=== PATIENT | female | born 2005 | race Caucasian/White ===

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

== ENCOUNTER → 2025-01-10 | Outpatient (CLI) | payer OTHER, SELFPAY ==
--- NOTE | 2025-01-10 07:12 | NM_ITS ---
PROCEDURE: GASTRIC EMPTYING STUDY - 4 HR 01/10/2025 REASON FOR EXAM: DELAYED 1HR GET COMPARISON: None. TECHNIQUE: The patient ingested a standard meal of cooked egg whites mixed with , toasted white bread, jelly, and water. Total time taken to ingest the meal was minutes. Approximately % of the meal was ingested. There was no vomiting postprandially. Anterior and posterior planar images of the upper abdomen were obtained for 1 minute immediately following the meal at 1h, 2h and 4h if more than 10% of the activity persisted within the stomach. Regions of interest were drawn, and a geometric mean was used to calculate a [id number]. Fasting Blood Glucose (if diabetic): mg/dL. Medications taken in the past 24 hours that may affect gastric emptying: None RADIOPHARMACEUTICAL: 1.2 mCi of technetium 99 M sulfur colloid FINDINGS: Percent activity remaining in stomach: 1 hour 66 % (normal 37-90%) 2 hours: 28 % (normal 30-60%) 4 hours: 1 % (normal 0-10%) NM/Gastric Emptying Study - 4 HR IMPRESSION: Normal gastric emptying. Reading Location: [id number]
== END | disposition home or self-care (01) ==
LOC: NM 07:11
PROVIDERS: PCP Family Medicine
DX: K31.84 Gastroparesis (principal)
CPT/HCPCS: 78264; A9541

== ENCOUNTER → 2025-03-28 | Outpatient (CLI) | payer OTHER, SELFPAY ==
--- NOTE | 2025-03-28 12:19 | NM_ITS ---
PROCEDURE: HEPATOBILIARY IMG W/PHARM INT 03/28/2025 REASON FOR EXAM: ABD BLOATING/EPIGASTRIC PAIN TECHNIQUE: Intravenous Choletec with planar imaging of the abdomen. RADIOPHARMACEUTICAL: 5.7 mg technetium 9 9 M mebrofenin COMPARISON: CT 12/01/2024 FINDINGS: Homogeneous liver activity. CBD and proximal bowel activity by 15 minutes. Gallbladder activity by 60 minutes. After 1.2 mcg of CCK administration, gallbladder ejection fraction of 90% is calculated. NM/Hepatobilliary Img w/Pharm Int IMPRESSION: Normal hepatobiliary imaging with gallbladder ejection fracture. Reading Location: [place] [id number]
--- NOTE | 2025-03-28 12:19 | NM_ITS ---
PROCEDURE: HEPATOBILIARY IMG W/PHARM INT 03/28/2025 REASON FOR EXAM: ABD BLOATING/EPIGASTRIC PAIN TECHNIQUE: Intravenous Choletec with planar imaging of the abdomen. RADIOPHARMACEUTICAL: 5.7 mg technetium 9 9 M mebrofenin COMPARISON: CT 12/01/2024 FINDINGS: Homogeneous liver activity. CBD and proximal bowel activity by 15 minutes. Gallbladder activity by 60 minutes. After 1.2 mcg of CCK administration, gallbladder ejection fraction of 90% is calculated. NM/Hepatobilliary Img w/Pharm Int IMPRESSION: Normal hepatobiliary imaging with gallbladder ejection fracture. Reading Location: [place] [address]
== END | disposition home or self-care (01) ==
LOC: NM 12:18
PROVIDERS: PCP Family Medicine
DX: R11.0 Nausea (principal); R14.0 Abdominal distension (gaseous); R10.13 Epigastric pain
CPT/HCPCS: 78227; A9537; J2805